=== PATIENT | male | born 1965 | race Caucasian/White ===

== ENCOUNTER 2018-04-16 20:58 | Emergency (ER) | payer BC ==
[~2018-04-16] VITALS: Ht 185.4 cm; Wt 76.2 kg
[~2018-04-16 20:58] MED LIST: NEO-POLYCIN EY3.5 GM OP; PERCOCET 5-3251 EACH PO
[2018-04-16 21:27] LABS: BE -5.2 mmol/L (-2 to +3); HCO3 19.8 mmol/L (22.0-26.0); PCO2 37.4 mmHg (35.0-45.0); PO2 77.5 mmHg (75.0-100.0); pH 7.341 (7.340-7.450)
[2018-04-16 22:07] LABS: PROTIME 9.9 Seconds (9.20-11.50)
[2018-04-16 22:08] LABS: CALCIUM 9.3 mg/dL (8.5-10.1); CREATININE 1.3 mg/dL (0.6-1.3); POTASSIUM 4.5 mmol/L (3.5-5.1)
[2018-04-16 22:22] LABS: ALBUMIN 3.9 g/dL (3.4-5.0); MAGNESIUM 2.4 mg/dL (1.8-2.4); TOTAL BILIRUBIN 0.4 mg/dL (<0.1-1.0); TOTAL PROTEIN 7.7 g/dL (6.4-8.2)
[2018-04-16 22:47] LABS: ABSOLUTE BASOPHILS 0.1 thou/uL (0.0-0.2); ABSOLUTE LYMPHOCYTES 1.3 thou/uL (0.8-5.3); ABSOLUTE MONOCYTES 0.6 thou/uL (0.0-1.2); ABSOLUTE NEUTROPHILS 6.7 thou/uL (1.6-8.1); BASOPHILS 0.7 %; EOSINOPHILS 0.1 %; HEMATOCRIT 47.6 % (42.0-52.0); HEMOGLOBIN 16.3 gm/dL (14.0-18.0); LYMPHOCYTES 15.1 %; MCH 33.5 pg (26.0-34.0); MCHC 34.2 g/dL (28.0-37.0); MCV 97.9 fL (80.0-100.0); MONOCYTES 7.4 %; MPV 8.7 fl. (7.2-11.1); NUCLEATED RBCS 0 /100WBC; PLATELET COUNT* 195 thou/uL (150-400); POLYS 76.7 %; RBC 4.86 mil/uL (4.50-6.00); RDW-CV 14.2 % (10.5-14.5); WBC 8.7 thou/uL (4.0-11.0)
[2018-04-16 23:50] LABS: INFLUENZA A ANTIGEN None Detected (None Detect); INFLUENZA B ANTIGEN None Detected (None Detect)
[2018-04-16 23:55] LABS: URINE BILIRUBIN NEGATIVE (Negative); URINE BLOOD NEGATIVE (Negative); URINE CLARITY CLEAR; URINE COLOR YELLOW; URINE GLUCOSE-RANDOM NEGATIVE (Negative); URINE KETONES NEGATIVE (Negative); URINE LEUKOCYTES-REFLEX NEGATIVE (Negative); URINE NITRITE-REFLEX NEGATIVE (Negative); URINE PROTEIN NEGATIVE (Negative); URINE SPECIFIC GRAVITY <= 1.005 (1.005-1.030); URINE UROBILINOGEN 0.2 E.U./dl (0.2-1.0)
[2018-04-17 00:03] LABS: AMP/METHAMP Negative (Negative); BARBITURATES Negative (Negative); BENZODIAZEPINES Negative (Negative); COCAINE Negative (Negative); METHADONE Negative (Negative); OPIATES POSITIVE (Negative); PCP Negative (Negative); THC Negative (Negative)
[2018-04-17 03:05] LABS: BE -7.4 mmol/L (-2 to +3); HCO3 19.7 mmol/L (22.0-26.0); PCO2 45.7 mmHg (35.0-45.0)
[2018-04-17 03:06] LABS: pH 7.253 (7.340-7.450)
[2018-04-17 03:07] LABS: PO2 232.9 mmHg (75.0-100.0)
[2018-04-17] MEDS ORDERED: PREDNISONE50 MG PO (05:25)
[2018-04-17] MEDS ORDERED: PROAIR HFA8.5 GM INH (05:25)
[2018-04-17 05:59] VITALS: BP 114/64
--- NOTE | 2018-04-17 10:20 | EKG ---
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 : 1965 Requested By: Pauline Collins Order Number: [id number] MD: Kwaku Eisenberg Measurements Intervals [place] Rate: 137 P: 47 MD: 136 QRS: 45 QRSD: 92 T: 37 QT: 295 QTc: 446 Interpretive Statements Sinus tachycardia Atrial premature complex Probable left atrial enlargement Baseline wander in lead(s) III,aVL,V1,V3,V4,V5,V6 No previous ECG available for comparison Electronically Signed On 04-17-2018 10:19:57 EMBOSSER OPERATOR by Kwaku Eisenberg [email or web address] <ELECTRONICALLY SIGNED> By: Kwaku Eisenberg MD, [facility] 04/17/18 1019 06 06 Kwaku Eisenberg MD, [facility] /EPI
== END 2018-04-17 05:59 | disposition home or self-care (01) ==
LOC: M.ERS 20:58
PROVIDERS: Emergency Medicine
DX: T50.991A Poisoning by other drugs, medicaments and biological substances, accidental (unintentional), initial encounter (principal); T50.901A Poisoning by unspecified drugs, medicaments and biological substances, accidental (unintentional), initial encounter; F10.129 Alcohol abuse with intoxication, unspecified; Y90.8 Blood alcohol level of 240 mg/100 ml or more; R41.82 Altered mental status, unspecified; Y92.89 Other specified places as the place of occurrence of the external cause

== ENCOUNTER 2020-05-26 21:10 | Emergency (ER) | payer OTHER ==
[~2020-05-26] VITALS: Ht 182.9 cm; Wt 117.9 kg
[~2020-05-26 21:10] MED LIST changes: +PREDNISONE50 MG PO; +PROAIR HFA8.5 GM INH
[2020-05-26 21:48] LABS: ABSOLUTE BASOPHILS 0.1 thou/uL (0.0-0.2); ABSOLUTE EOSINOPHILS 0.2 thou/uL (0.0-0.7); ABSOLUTE LYMPHOCYTES 2.3 thou/uL (0.8-5.3); ABSOLUTE MONOCYTES 0.8 thou/uL (0.0-1.2); ABSOLUTE NEUTROPHILS 4.7 thou/uL (1.6-8.1); BASOPHILS 1.3 %; EOSINOPHILS 2.1 %; HEMATOCRIT 47.7 % (42.0-52.0); HEMOGLOBIN 16.6 gm/dL (14.0-18.0); LYMPHOCYTES 28.1 %; MCH 35.2 pg (26.0-34.0); MCHC 34.9 g/dL (28.0-37.0); MCV 101.1 fL (80.0-100.0); MONOCYTES 9.8 %; MPV 7.9 fl. (7.2-11.1); NUCLEATED RBCS 0 /100WBC; PLATELET COUNT* 184 thou/uL (150-400); POLYS 58.7 %; RBC 4.72 mil/uL (4.50-6.00); RDW-CV 14.3 % (10.5-14.5); WBC 8.1 thou/uL (4.0-11.0)
[2020-05-26 21:57] LABS: CALCIUM 8.6 mg/dL (8.5-10.1); CREATININE 1.2 mg/dL (0.6-1.3)
[2020-05-26 21:59] LABS: PROTIME 10.5 Seconds (9.20-11.50)
[2020-05-26 22:08] LABS: ALBUMIN 3.6 g/dL (3.4-5.0); MAGNESIUM 1.9 mg/dL (1.8-2.4); TOTAL BILIRUBIN 0.5 mg/dL (<0.1-1.0); TOTAL PROTEIN 6.7 g/dL (6.4-8.2)
[2020-05-27] MEDS ORDERED: LOPRESSOR50 MG PO (00:33)
[2020-05-27 00:45] VITALS: BP 166/110
--- NOTE | 2020-05-27 11:19 | EKG ---
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: : 1965 Requested By: Pauline Collins Order Number: [id number] MD: Kwaku Eisenberg Measurements Intervals [place] Rate: 115 P: 59 VA: 159 QRS: 39 QRSD: 100 T: 9 QT: 309 QTc: 428 Interpretive Statements Sinus tachycardia Ventricular premature complex Left atrial enlargement Compared to ECG 04/16/2018 22:07:44 Ventricular premature complex(es) now present rate has slowed Electronically Signed On 05-27-2020 11:19:39 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
== END 2020-05-27 00:45 | disposition home or self-care (01) ==
LOC: M.ERS 21:10
PROVIDERS: Emergency Medicine
DX: I10 Essential (primary) hypertension (principal); Z20.828 Contact with and (suspected) exposure to other viral communicable diseases